=== PATIENT | male | born 1985 | race Caucasian/White ===

== ENCOUNTER 2024-09-01 07:45 | Inpatient (IN) | payer MEDICAID ==
[~2024-09-01] VITALS: Ht 165.1 cm; Wt 171.5 kg
[2024-09-01 07:59] VITALS: BP 178/111; PULSE 94; RESP 24; TEMP 99.2; O2SAT 93
[2024-09-01 08:36] LABS: BASOPHILS # (AUTO) 0.1 K/uL (0.00-0.22); BASOPHILS % (AUTO) 1.2 % (0.0-2.0); EOSINOPHILS # (AUTO) 0.2 K/uL (0-0.4); EOSINOPHILS % (AUTO) 1.6 % (0.0-4.0); HEMATOCRIT 48.4 % (36-52); HEMOGLOBIN 16.2 g/dL (12.0-18.0); LYMPHOCYTES # (AUTO) 1.9 K/uL (2.0-11.5); LYMPHOCYTES % (AUTO) 19.3 % (20.5-51.1); MEAN CORPUSCULAR HEMOGLOBIN 30 pg (27-31); MEAN CORPUSCULAR HGB CONC 33 g/dL (33-37); MEAN CORPUSCULAR VOLUME 91.1 fL (80-94); MONOCYTES # (AUTO) 0.7 K/uL (0.8-1.0); MONOCYTES % (AUTO) 7.5 % (1.7-9.3); NEUTROPHILS # (AUTO) 7.1 K/uL (1.8-7.7); NEUTROPHILS % (AUTO) 70.4 % (42.2-75.2); PLATELET COUNT (AUTO) 241 K/uL (140-450); RED BLOOD CELL COUNT(AUTO) 5.32 MIL/uL (4.20-6.10); RED CELL DISTRIBUTION WIDTH 14.7 % (11.6-13.7)
[2024-09-01 08:47] LABS: ANION GAP 7.6 (8-16); CALCIUM 8.6 mg/dL (8.5-10.1); CARBON DIOXIDE 35.9 mmol/L (21-32); CREATININE 0.9 mg/dL (0.6-1.3); POTASSIUM 4.5 mmol/L (3.5-5.1)
[2024-09-01] MEDS: FUROSEMIDE 40 MG/4 ML VIAL IVP ONE (08:57)
[2024-09-01] MEDS: KETOROLAC 60 MG/2 ML VIAL IM ONE (08:59)
[2024-09-01] MEDS ORDERED: POTASSIUM CHLORIDE 10 MEQ TABER PO PRN (09:10)
[2024-09-01] MEDS ORDERED: MORPHINE SULFATE 2 MG/ML SYR IVP PRN (09:10)
[2024-09-01] MEDS ORDERED: MAG SULF 2000 MG/WATER PREMIX 50 ML IV PRN (09:10)
[2024-09-01] MEDS ORDERED: KCL 20 MEQ IN 100 mL PREMIX 200 ML IV PRN (09:10)
[2024-09-01] MEDS ORDERED: MAGNESIUM OXIDE 400 MG TAB PO PRN (09:10)
[2024-09-01 11:47] LABS: CHOL/HDL RATIO 3.7 (1-4.5)
[2024-09-01] MEDS: ACETAMINOPHEN 325 MG TAB PO PRN (12:01)
[2024-09-01 13:00] VITALS: PULSE 81; RESP 24; O2SAT 98
[2024-09-01] MEDS: HYDROcodone/APAP 5/325 MG 1 TAB TAB PO PRN (15:32)
[2024-09-01 16:00] VITALS: BP 134/75; PULSE 82; PULSE 88; RESP 19; TEMP 97.5
[2024-09-01 17:45] VITALS: PULSE 93; RESP 20; O2SAT 95
[2024-09-01] MEDS ORDERED: ALBUTEROL SULFATE/IPRATROPIU 3 ML SOL IH PRN (17:55)
[2024-09-01 18:49] LABS: AMPHETAMINE, URINE POSITIVE ng/ml (NEG <=1000); BARBITURATE, URINE NEGATIVE ng/ml (NEG <=200); BENZODIAZEPINE, URINE NEGATIVE ng/mL (NEG <=200); CANNABINOID, URINE NEGATIVE ng/mL (NEG <=50); COCAINE, URINE NEGATIVE ng/mL (NEG <=300); OPIATE, URINE NEGATIVE ng/mL (NEG <=2000); PHENCYCLIDINE SCREEN,URINE POSITIVE ng/mL (NEG <=25)
[2024-09-01 20:12] VITALS: O2SAT 93
[2024-09-02] MEDS ORDERED: FUROSEMIDE 40 MG/4 ML VIAL IVP SCH (09:00)
== END 2024-09-01 21:25 | disposition short-term general hospital (02) | DRG 133 ==
LOC: MED 07:45 → MTU 09:15
PROVIDERS: ADMIT Student in an Organized Health Care Education/Training Program; ATTEND Student in an Organized Health Care Education/Training Program
DX: J96.01 Acute respiratory failure with hypoxia (principal); I11.0 Hypertensive heart disease with heart failure; I50.9 Heart failure, unspecified; Z68.44 Body mass index [BMI] 60.0-69.9, adult; E66.01 Morbid (severe) obesity due to excess calories; F19.10 Other psychoactive substance abuse, uncomplicated; Z59.00 Homelessness unspecified; Z79.899 Other long term (current) drug therapy; J06.9 Acute upper respiratory infection, unspecified
CPT/HCPCS: 36415; 71045; 80048; 80305; 83880; 84484; 85025; 85379; 87081; 93005; 93970; 96372; 96374; 99285; G0482; J1885; J1940; Q0092